=== PATIENT | female | born 1950 | race Hispanic/Latino ===

== ENCOUNTER 2018-11-05 12:20 | Outpatient (CLI) | payer MEDICARE ==
--- NOTE | 2018-11-05 14:54 | Mammography Report ---
DIGITAL SCREENING MAMMOGRAM WITH CAD, 11/05/2018 INDICATION: Routine screening mammography. TECHNIQUE: Digital bilateral 2D mammography was obtained in the craniocaudal and mediolateral obliq ue projections. This examination was interpreted with the benefit of Computer-Aided Detection analysi s. COMPARISON: None available. FINDINGS: Breast Density: There are scattered areas of fibroglandular density. There is no evidence of dominant mass, suspicious calcifications or architectural distortion in eithe r breast. IMPRESSION: No mammographic evidence of malignancy. Follow up recommendation: Routine yearly BI-RADS Category 1: Negative. A "normal" or negative report should not discourage follow up or biopsy of a clinically significant f inding. A written summary of these findings will be mailed to the patient. The patient will be entered into a mammography reporting system which will generate a reminder letter for the patient's next appointmen t at the appropriate interval. The [employer] recommends yearly mammograms starting at age 40 and continuing as l ming as a woman is in good health. Breast MRI is recommended for women with an approximate 20-25% or greater lifetime risk of breast cancer, including women with a strong family history of breast or ova gabriela cancer or who have been treated for Hodgkin's disease. Signer Name: Simone Recinos MD Signed: 11/05/2018 2:50 PM Workstation Name: [id number]
== END 2018-11-05 12:21 | disposition home or self-care (01) ==
LOC: SPVWC 12:20
PROVIDERS: ATTEND Family Medicine
DX: Z12.31 Encounter for screening mammogram for malignant neoplasm of breast (principal)
CPT/HCPCS: 77067

== ENCOUNTER 2019-01-21 08:01 | Outpatient (CLI) | payer MEDICARE ==
--- NOTE | 2019-01-21 11:44 | Fluoroscopy Report ---
DEFAGRAM HISTORY: Pelvic floor dysfunction FINDINGS: Administrative Services Manager film of the abdomen demonstrates an unremarkable bowel gas pattern. No evidence for rectal mass or ulceration. Lateral cine images were obtained during defecation. The images demonstrate a large rectocele which d oes not completely empty. A small enterocele was also identified. No evidence for rectal prolapse. 0.6 minutes of fluoroscopy time was utilized. 49 fluoroscopic images were captured. IMPRESSION: Large rectocele which does not completely empty. Small enterocele. Signer Name: Pacheco Adrian Jr, MD Signed: 01/21/2019 11:39 AM Workstation Name: [id number]
== END 2019-01-21 08:02 | disposition home or self-care (01) ==
LOC: FLUORO 08:01
PROVIDERS: ATTEND Internal Medicine Gastroenterology
DX: K45.8 Other specified abdominal hernia without obstruction or gangrene (principal); N81.6 Rectocele
CPT/HCPCS: 74270; Q9963